=== PATIENT | male | born 1980 | race Two or more races ===

== ENCOUNTER 2025-06-07 13:13 | Emergency (ER) | payer OTHER, SELFPAY ==
[2025-06-07 13:14] VITALS: BMI 37.0
[2025-06-07 15:05] VITALS: BP 160/94; PULSE 60; RESP 20; TEMP 37.2; O2SAT 98
--- NOTE | 2025-06-07 15:30 | EDNOTE_ITS ---
ED General RME/HPI General Chief complaint: General Adult/Misc Complain Stated complaint: L FACIAL SWELLING S/P TAKING OUT A HAIR Time Seen by Provider: 06/07/25 14:13 Arrival date/time: 06/07/25 13:13 This is a 44-year-old male that comes into the emergency room with complaints of left facial swelling. Patient was taking out a hair that he felt was ingrown to his left cheek up by his lip and he said he accidentally pinched his skin. Patient states since then he has had some swelling and also some drainage from that area. Patient denies fever or chills. Related Data Previous Rx's ?Medication ?Instructions ?Recorded ibuprofen 800 mg tablet 800 mg PO Q6H PRN pain #20 t abs 06/07/25 Allergies Allergy/AdvReac Type Severity Reaction Status Date / Time No Known Allergies Allergy Verified 06/07/25 13:21 Review of Systems Review of Systems Systems Reviewed: All systems reviewed, normal except as documented Past Medical History Past Medical History Comments PMH COMMENT: Denies ED Exam Narrative Physical exam: VITAL SIGNS: Reviewed. GENERAL APPEARANCE: Alert and interactive, follows commands, no acute distress HEAD AND FACE: Left facial swelling with mild erythema ENT: PERRL, conjuctiva pink and clear, eyelid no trauma, Mucous membrane moist. NECK: Supple, nontender, no nuchal rigidity. CHEST: No tenderness, no crepitus, no paradoxical movement, no retractions. LUNGS: breathing even and unlabored HEART: Regular rate, cap refill less than 2 seconds ABDOMEN: Soft, nondistended, no guarding, nontender, no rebound, no masses, NEUROLOGICAL: Gross motor function intact sensory function intact, Appropriate for age. MUSCULOSKELETAL: low back nontender, full range of motion. no midline tenderness, no meningismus, no step offs EXTREMITIES: No redness no swelling no skin breakdown on bilateral foot and leg. Distal neurovascular status intact bilateral foot SKIN: Color pink, dry, no rash, no lacerations, no abrasions, no contusions. Course Quality Measures none Orders Category Date Time Status Acetaminophen Tab [Tylenol ES Tab] Med 06/07/25 15:30 Discontinued 1,000 mg PO X1 ONE Ibuprofen Tab [Motrin Tab] Med 06/07/25 15:30 Discontinued 800 mg PO X1 ONE cefTRIAXone [Rocephin] 1,000 mg Med 06/07/25 15:30 Discontinued Lidocaine 1% 20 ml [Xylocaine 1% 20 ML] 2.1 ml IM X1 Vital Signs Vital signs: Vital Signs Temperature 99 F 06/07/25 15:05 Pulse Rate 60 06/07/25 15:05 Respiratory Rate 20 06/07/25 15:05 Blood Pressure 160/94 H 06/07/25 15:05 Pulse Oximetry (%) 98 06/07/25 15:05 Oxygen Delivery Method Room Air 06/07/25 15:05 Discharge Plan Plan Patient Disposition: HOME (Self Care) Patient condition on transfer: Stable Prescriptions/Referrals Prescriptions/Med Rec: New ibuprofen 800 mg tablet 800 mg PO Q6H PRN (Reason: pain) Qty: 20 0RF Referrals: Mary Lezama FNP ([email or web address]) [Primary Care Provider] - In 1 week Problem List Clinical Impression: Cellulitis Patient/Caregiver Discharge Instructions Discharge Activity: activity as tolerated Education Materials: ED Cellulitis Additional Instructions: Follow up with primary provider in 1-2 days. Come back to ED if symptoms change or worsen Print Language: Ethiopian Stand Alone Forms: [employer] Award Info., Patient Portal Info Letter MONA/MASOUD Supervising Physician MONA/MASOUD Supervising Physician: isaura CASTANEDA Narrative MDM hospital course (for use when minimal MDM required): Patient likely had an ingrown hair on his face and turned into folliculitis and now cellulitis now. Will treat with antibiotics. Patient states that he thinks he poked some self with the tweezers. Patient told to use warm compresses on base. Base has no fluctuance mild induration of the face. Will have patient follow-up with primary provider in 1 to 2 days. [place] to the emergency room if symptoms change or worsen. Patient verbalized understanding ritchieon dictation: Although this document has been carefully reviewed, there may still be some phonetic and other typographical errors. These errors are purely grammatical due to imperfections in the software program and should not be construed in any way to compromise the substance of the patient's medical care during this visit. Clinical Information Provided by: none Medical Records reviewed None Meds/Rx considered, not ordered None Labs/Rad/Tests considered, not ordered None Chronic Illness/Social Conditions which may negatively complicate care or outcome(s)-explain: None or not applicable Labs Labs: none Imaging Imaging interpretation: none Medication Administration(s) Medication Administration History Discontinued Medications Acetaminophen (Acetaminophen 500 Mg Tablet) 1,000 mg PO X1 ONE Stop: 06/07/25 15:31 Last Admin: 06/07/25 15:40 Dose: 1,000 mg Documented By: OA Ceftriaxone Sodium 1,000 mg/ (Lidocaine HCl 2.1 ml) 0 mg IM X1 ONE Stop: 06/07/25 15:31 Last Admin: 06/07/25 15:41 Dose: 2.1 mg Documented By: OA Ibuprofen (Ibuprofen Tab 400 Mg Tablet) 800 mg PO X1 ONE Stop: 06/07/25 15:31 Last Admin: 06/07/25 15:41 Dose: 800 mg Documented By: OA
[2025-06-07] MEDS: ACETAMINOPHEN 500 MG TABLET 1000 MG PO (15:40)
[2025-06-07] MEDS: IBUPROFEN TAB 400 MG TABLET 800 MG PO (15:41)
[2025-06-07] MEDS: cefTRIAXone 1,000 MG, LIDOCAINE 1% 20 ML 2.1 ML IM (15:41)
== END 2025-06-07 16:19 | disposition home or self-care (01) ==
PROVIDERS: Emergency Provider Emergency Medicine; PCP Nurse Practitioner Primary Care
DX: L03.211 Cellulitis of face (principal)
CPT/HCPCS: 96372; 99283; J0696; J3490; A9270

== ENCOUNTER → 2025-08-19 | Outpatient (CLI) | payer BC, SELFPAY ==
--- NOTE | 2025-08-19 16:28 | XR_ITS ---
EXAMINATION: PA lateral chest 2 views TECHNIQUE: Upright PA lateral chest 2 views Date and time: August 19, 2025, 1646 hours INDICATIONS: TB screening FINDINGS: Minor prominence left ventricle No pneumonia or pulmonary edema. Osseous structures are intact IMPRESSION: No active disease No radiographic findings of active tuberculosis
== END | disposition home or self-care (01) ==
LOC: CDIM 16:22
PROVIDERS: Referring Provider Nurse Practitioner Primary Care; Visit Provider Nurse Practitioner Primary Care
DX: Z11.1 Encounter for screening for respiratory tuberculosis (principal)
CPT/HCPCS: 71046